=== PATIENT | female | born 1995 | race Caucasian/White ===

== ENCOUNTER 2018-12-27 19:33 | Emergency (ER) | payer MEDICAID ==
[~2018-12-27] VITALS: Ht 154.9 cm; Wt 61.2 kg
[2018-12-27 19:52] VITALS: Ht 154.9 cm; Wt 61.2 kg
[2018-12-27 21:01] LABS: UA SPECIFIC GRAVITY 1.015 (1.005-1.035); microscopic required? YES; urine erythrocyte 3+ (NEGATIVE)
[2018-12-27 21:05] LABS: BASOPHIL % 0.2 % (0-2); PLATELET COUNT 261 x10^3mcL (130-400); RED CELL DISTRIBUTION WIDTH 13.3 % (11.5-14.5)
[2018-12-27 22:58] VITALS: BP 109/51
== END 2018-12-27 22:58 | disposition home or self-care (01) ==
LOC: ED 19:33
PROVIDERS: Specialist
DX: O20.0 Threatened abortion (principal); Z3A.01 Less than 8 weeks gestation of pregnancy; Z88.1 Allergy status to other antibiotic agents
CPT/HCPCS: 36415

== ENCOUNTER 2019-02-02 14:57 | Emergency (ER) | payer MEDICAID ==
[~2019-02-02] VITALS: Ht 154.9 cm; Wt 60.3 kg
[2019-02-02 15:37] VITALS: Ht 154.9 cm; Wt 60.3 kg
[2019-02-02 16:20] LABS: BASOPHIL % 0.6 % (0-2); PLATELET COUNT 309 x10^3mcL (130-400); RED CELL DISTRIBUTION WIDTH 13.9 % (11.5-14.5)
[2019-02-02 18:40] VITALS: BP 100/58
== END 2019-02-02 18:40 | disposition home or self-care (01) ==
LOC: ED 14:57
PROVIDERS: Emergency Medicine
DX: Z33.2 Encounter for elective termination of pregnancy (principal); Z88.1 Allergy status to other antibiotic agents; K58.9 Irritable bowel syndrome, unspecified
CPT/HCPCS: 36415; Q0092

== ENCOUNTER 2019-12-19 17:08 | Emergency (ER) | payer MEDICAID ==
[~2019-12-19] VITALS: Ht 152.4 cm; Wt 61.7 kg
[2019-12-19 17:17] VITALS: Ht 152.4 cm; Wt 61.7 kg
[2019-12-19 18:08] LABS: microscopic required? YES; urine erythrocyte NEGATIVE (NEGATIVE)
[2019-12-19 18:49] VITALS: BP 106/51
== END 2019-12-19 18:49 | disposition home or self-care (01) ==
LOC: ED 17:08
PROVIDERS: Emergency Medicine
DX: O23.41 Unspecified infection of urinary tract in pregnancy, first trimester (principal); O21.8 Other vomiting complicating pregnancy; Z3A.01 Less than 8 weeks gestation of pregnancy; Z88.1 Allergy status to other antibiotic agents